=== PATIENT | male | born 1950 | race Caucasian/White ===

== ENCOUNTER → 2018-06-20 | Outpatient (CLI) | payer MEDICARE, OTHER ==
[~2018-06-20] MED LIST: ASA5UEC; CARDURA4 MG PO; GLUCOPHAGE500 MG PO; LISINOPRIL20 MG PO; NORCO 5-325 TA1 EACH PO; ZOCOR40 MG PO
--- NOTE | 2018-06-20 14:56 | 2DMMODE ---
[place] [address] 2 D/M-MODE ECHOCARDIOGRAM Name: JAMES OJEDA Room: [facility]#: [id number] Admission: 06/20/18 Attend Phys: Maria Luz Taveras Discharge: Date of : 46 Date of Service: 06/20/18 1456 Report #: [id number] THIS REPORT FOR: //name// APPROVED REPORT Study performed: 06/20/2018 08:06:11 EXAM: Comprehensive 2D, Doppler, and color-flow Echocardiogram Patient Location: Out-Patient Status: routine BSA: 2.37 HR: 70 bpm BP: 150/85 mmHg Other Information Study Quality: Good Indications Murmur 2D Dimensions IVSd: 14.06 (7-11mm) LVOT Diam: 20.72 (18-24mm) LVDd: 54.45 mm PWd: 12.64 (7-11mm) Ascending Ao: 39.27 (22-36mm) LVDs: 25.58 (25-40mm) Aortic Root: 32.58 mm Volumes Left Atrial Volume (Systole) LA ESV Index: 14.90 mL/m2 Aortic Valve AoV Peak Raymundo.: 2.62 m/s AO Peak Gr.: 27.43 mmHg LVOT Max P.92 mmHg AO Mean Gr.: 14.82 mmHg LVOT Mean P.26 mmHg LVOT Max V: 1.11 m/s AO V2 VTI: 47.16 cm LVOT Mean V: 0.68 m/s MARIA INES (VTI): 1.60 cm2 LVOT V1 VTI: 22.37 cm Mitral Valve E/A Ratio: 0.63 MV Decel. Time: 430.96 ms MV E Max Raymundo.: 0.56 m/s MV PHT: 124.98 [place] [address] 2 D/M-MODE ECHOCARDIOGRAM Name: JAMES OJEDA Room: [facility]#: [id number] Admission: 06/20/18 Attend Phys: Maria Luz Taveras Discharge: Date of : 46 Date of Service: 06/20/18 1456 Report #: [id number] MVA (PHT): 1.76 cm2 TDI E/Lateral E': 8.00 E/Medial E': 14.00 Medial E' Raymundo.: 0.04 m/s Lateral E' Raymundo.: 0.07 m/s Pulmonary Valve PV Peak Raymundo.: 1.04 m/s PV Peak Gr.: 4.34 mmHg Tricuspid Valve RAP Estimate: 5.00 mmHg TR Peak Gr.: 11.22 mmHg RVSP: 16.22 mmHg PA Pressure: 16.22 mmHg Left Ventricle The left ventricle is normal size. There is normal LV segmental wall motion. Mild concentric left ventricular hypertrophy. Left ventricular systolic function is normal. The left ventricular ejection fraction is within the normal range. LVEF is 60%. Grade I - abnormal relaxation pattern. Right Ventricle The right ventricle is normal size. The right ventricular systolic function is normal. Atria The left atrium size is normal. The right atrium size is normal. Aortic Valve Moderate aortic valve sclerosis. No aortic regurgitation is present. Mild aortic stenosis. Mitral Valve The mitral valve is normal in structure. There is no mitral valve regurgitation noted. No evidence of mitral valve stenosis. Tricuspid Valve The tricuspid valve is normal in structure. Trace tricuspid regurgitation. Pulmonic Valve The pulmonary valve is normal in structure. There is no pulmonic [place] [address] 2 D/M-MODE ECHOCARDIOGRAM Name: JAMES OJEDA Room: [facility]#: [id number] Admission: 06/20/18 Attend Phys: Maria Luz Taveras Discharge: Date of : 46 Date of Service: 06/20/18 1456 Report #: [id number] Great Vessels The aortic root is normal in size. IVC is normal in size and collapses >50% with inspiration. Pericardium There is no pericardial effusion. <Conclusion> The left ventricle is normal size. Mild concentric left ventricular hypertrophy. Left ventricular systolic function is normal. The left ventricular ejection fraction is within the normal range. LVEF is 60%. Grade I - abnormal relaxation pattern. The right ventricle is normal size. The left atrium size is normal. Moderate aortic valve sclerosis. No aortic regurgitation is present. Mild aortic stenosis. The mitral valve is normal in structure. The tricuspid valve is normal in structure. IVC is normal in size and collapses >50% with inspiration. There is no pericardial effusion. There is normal LV segmental wall motion. <ELECTRONICALLY SIGNED> By: Tyson Ramsay MD, [facility] 06/20/18 1456 1456 1456 Tyson Ramsay MD, FACC /INF
== END ==
LOC: M.CRD 07:45
DX: I51.7 Cardiomegaly (principal); I35.0 Nonrheumatic aortic (valve) stenosis; I35.8 Other nonrheumatic aortic valve disorders

== ENCOUNTER 2018-06-27 10:43 | Emergency (ER) | payer MEDICARE, OTHER ==
[~2018-06-27] VITALS: Ht 185.4 cm; Wt 115.7 kg
[2018-06-27] MEDS ORDERED: OMEPRAZOLE40 MG PO (10:53)
[2018-06-27] MEDS ORDERED: SYMBICORT160 MCG/4. INH (10:54)
[2018-06-27 12:23] VITALS: BP 132/81
== END 2018-06-27 12:25 | disposition home or self-care (01) ==
LOC: M.ERS 10:43
DX: S80.11XA Contusion of right lower leg, initial encounter (principal); S00.03XA Contusion of scalp, initial encounter; F17.210 Nicotine dependence, cigarettes, uncomplicated; E78.5 Hyperlipidemia, unspecified; I10 Essential (primary) hypertension; Z96.651 Presence of right artificial knee joint; Z88.0 Allergy status to penicillin; W00.0XXA Fall on same level due to ice and snow, initial encounter; Y92.89 Other specified places as the place of occurrence of the external cause; Y93.89 Activity, other specified; Y99.8 Other external cause status

== ENCOUNTER → 2018-12-12 | Outpatient (CLI) | payer MEDICARE, OTHER ==
[~2018-12-12] MED LIST changes: +OMEPRAZOLE40 MG PO; +SYMBICORT160 MCG/4. INH
== END ==
LOC: M.CT 08:33
DX: J43.2 Centrilobular emphysema (principal); I25.10 Atherosclerotic heart disease of native coronary artery without angina pectoris; I70.0 Atherosclerosis of aorta; F17.210 Nicotine dependence, cigarettes, uncomplicated; M47.814 Spondylosis without myelopathy or radiculopathy, thoracic region

== ENCOUNTER → 2019-01-16 | Outpatient (CLI) | payer MEDICARE, OTHER | LOC: M.ULTRA 10:00 | DX: I11.9 Hypertensive heart disease without heart failure (principal); E78.2 Mixed hyperlipidemia; E11.42 Type 2 diabetes mellitus with diabetic polyneuropathy; I65.23 Occlusion and stenosis of bilateral carotid arteries ==

== ENCOUNTER → 2019-02-07 | Outpatient (CLI) | payer MEDICARE, OTHER | LOC: M.CT 08:54 | DX: I65.23 Occlusion and stenosis of bilateral carotid arteries (principal); Z86.73 Personal history of transient ischemic attack (TIA), and cerebral infarction without residual deficits; Z79.899 Other long term (current) drug therapy ==

== ENCOUNTER 2020-03-05 14:20 | Emergency (ER) | payer MEDICARE, OTHER ==
[~2020-03-05] VITALS: Ht 185.4 cm; Wt 109.8 kg
[2020-03-05] MEDS ORDERED: DOXYCYCLINE 10100 M2 PO (15:47)
[2020-03-05 16:03] VITALS: BP 139/68
== END 2020-03-05 16:03 | disposition home or self-care (01) ==
LOC: M.ERS 14:20
DX: S81.811A Laceration without foreign body, right lower leg, initial encounter (principal); I10 Essential (primary) hypertension; E78.5 Hyperlipidemia, unspecified; F17.210 Nicotine dependence, cigarettes, uncomplicated; Z88.0 Allergy status to penicillin; Z79.899 Other long term (current) drug therapy; W45.8XXA Other foreign body or object entering through skin, initial encounter; Y93.89 Activity, other specified; Y92.89 Other specified places as the place of occurrence of the external cause; Y99.8 Other external cause status